=== PATIENT | female | born 1960 | race Native Hawaiian/Other Pacific Islander ===

== ENCOUNTER 2019-04-08 11:25 | Inpatient (IN) | payer SELFPAY ==
--- NOTE | 2019-04-08 12:01 | Event Note ---
ED Screening Note ED Screening Note: sent by pcp for weight loss n/v/d confusion hx liver disease quit drinking 7 y ago cig smoker htn This initial assessment/diagnostic orders/clinical plan/treatment(s) is/are subject to change based on patients health status, clinical progression and re- assessment by fellow clinical providers in the ED. Further treatment and workup at subsequent clinical providers discretion. Patient/guardian urged not to elope from the ED as their condition may be serious if not clinically assessed and managed. Initial orders include: labs ua ct
[2019-04-08 12:31] LABS: Hemoglobin 10.1 gm/dl (10.1-14.3); Mean Corpuscular HGB Conc 33 % (30-34); Mean Corpuscular Volume 85 fl (79-97); Red Blood Count 3.65 M/mm3 (3.65-5.03); Red Cell Distribution Width 19.4 % (13.2-15.2)
[2019-04-08 12:32] LABS: Platelet Count 56 K/mm3 (140-440)
[2019-04-08 12:55] LABS: Alanine Aminotransferase 66 units/L (7-56); Albumin 2.6 g/dL (3.9-5); BUN/Creatinine Ratio 18; Blood Urea Nitrogen 16 mg/dL (7-17); Calcium 8.7 mg/dL (8.4-10.2); Hemolysis Index 0
[2019-04-08 13:12] LABS: Basophils % (Manual) 0 % (0.0-1.8); Total Cells Counted 100
[2019-04-08 13:13] LABS: Anisocytosis Few; Large Platelets Rare; Ovalocytes Rare; Platelet Estimate Consistent w Auto; Poikilocytosis Few
[2019-04-08 15:10] LABS: INR 1.26 (0.87-1.13)
[2019-04-08 15:11] LABS: Partial Thromboplastin Time 29.4 Sec. (24.2-36.6)
--- NOTE | 2019-04-08 15:39 | Cat Scan Report ---
CT HEAD WITHOUT CONTRAST INDICATION : confusion. Dizziness for one day TECHNIQUE: Axial imaging performed from the skull apex through the skull base without the use of con trast. All CT scans at this location are performed using CT dose reduction for ALARA by means of aut omated exposure control. COMPARISON: None FINDINGS: Parenchyma: No acute intracranial hemorrhage or parenchymal abnormality. Ventricles: Ventricles are normal in size and appear symmetric. Bones: No acute osseous abnormality. Sinuses: Sinuses and mastoid air cells are clear. Soft tissues: Soft tissues including the orbits appear normal. IMPRESSION: No acute abnormality. Signer Name: Ector Narvaez Jr, MD Signed: 04/08/2019 3:35 PM Workstation Name: [id number]
[2019-04-08] MEDS ORDERED: ZOFRAN IV ONE (16:28)
--- NOTE | 2019-04-08 16:31 | Emergency Department Report ---
ED Abdominal Pain HPI - General Chief Complaint: Nausea/Vomiting/Diarrhea Stated Complaint: WEAKNESS/V/D/N Time Seen by Provider: 04/08/19 11:56 Source: patient Mode of arrival: Ambulatory Limitations: No Limitations - History of Present Illness Initial Comments: Patient is 58 years old female with no significant past medical history except for possible alcoholic liver cirrhosis. Patient presented to the ER primary care office for evaluation of generalized weakness, nausea and abdominal pain. Patient denied any fever or chills. Patient denied drinking any alcohol recently. Patient also denied any confusion. Patient denied any chest pain, shortness of breath or cough. MD Complaint: abdominal pain -: days(s) Location: diffuse Radiation: none Migration to: no migration Severity scale (0 -10): 0 Associated Symptoms: nausea - Related Data Allergies Allergy/AdvReac Type Severity Reaction Status Date / Time No Known Allergies Allergy Verified 04/08/19 12:00 ED Review of Systems ROS: Stated complaint: WEAKNESS/V/D/N Other details as noted in HPI Comment: All other systems reviewed and negative Constitutional: denies: chills, fever Respiratory: denies: cough, orthopnea, shortness of breath, SOB with exertion, wheezing Cardiovascular: denies: chest pain, palpitations Gastrointestinal: abdominal pain, nausea. denies: vomiting, diarrhea, constipation, hematemesis, melena Musculoskeletal: denies: back pain Neurological: weakness. denies: headache, numbness, paresthesias, confusion, abnormal gait ED Past Medical Hx - Past Medical History Previous Medical History?: Yes Hx Hypertension: Yes Additional medical history: Alcoholic cirrhosis of liver - Surgical History Past Surgical History?: Yes Additional Surgical History: hysterectomy - Social History Smoking Status: Current Every Day Smoker Substance Use Type: None ED Physical Exam - General Limitations: No Limitations General appearance: alert, in no apparent distress - Head Head exam: Present: atraumatic, normocephalic, normal inspection - Eye Eye exam: Present: PERRL, EOMI, scleral icterus - ENT ENT exam: Present: normal exam, normal orophraynx, mucous membranes moist - Neck Neck exam: Present: normal inspection, full ROM. Absent: tenderness, meningismus, lymphadenopathy, thyromegaly - Respiratory Respiratory exam: Present: normal lung sounds bilaterally - Cardiovascular Cardiovascular Exam: Present: regular rate, normal rhythm, normal heart sounds - GI/Abdominal GI/Abdominal exam: Present: soft, normal bowel sounds. Absent: distended, tenderness, guarding, rebound, rigid, organomegaly, mass, bruit, pulsatile mass, hernia - Extremities Exam Extremities exam: Present: normal inspection, full ROM, normal capillary refill. Absent: tenderness, pedal edema, calf tenderness - Back Exam Back exam: Present: normal inspection, full ROM. Absent: tenderness, CVA tenderness (R), CVA tenderness (L), muscle spasm, paraspinal tenderness, verte bral tenderness - Neurological Exam Neurological exam: Present: alert, oriented X3, CN II-XII intact, normal gait, reflexes normal - Psychiatric Psychiatric exam: Present: normal mood - Skin Skin exam: Present: warm, intact, normal color ED Course Vital Signs 04/08/19 04/08/19 04/08/19 11:57 16:30 16:41 Temperature 97.4 F L Pulse Rate 72 77 Respiratory 14 10 L 16 Rate Blood Pressure 101/50 Blood Pressure 130/58 [Right] O2 Sat by Pulse 100 99 Oximetry 04/08/19 04/08/19 18:59 19:43 Temperature 98.6 F Pulse Rate 81 85 Respiratory 16 13 Rate Blood Pressure 121/59 Blood Pressure 124/62 [Right] O2 Sat by Pulse 98 100 Oximetry ED Medical Decision Making - Lab Data Result diagrams: 04/08/19 12:03 04/08/19 12:03 - Radiology Data Radiology results: report reviewed - Medical Decision Making Patient is 58 years old female with no significant past medical history except for possible alcoholic liver cirrhosis. Patient presented to the ER primary care office for evaluation of generalized weakness, nausea and abdominal pain. Patient denied any fever or chills. Patient denied drinking any alcohol recently. Patient also denied any confusion. Patient denied any chest pain, shortness of breath or cough. Patient labs reviewed and showed abnormal liver function tests with increased liver enzymes and bilirubin. I discussed the patient is , from gastroenterology. She advised to start patient on lactulose and she will be consulted on the patient. Critical care attestation.: If time is entered above; I have spent that time in minutes in the direct care of this critically ill patient, excluding procedure time. ED Disposition Clinical Impression: Hepatic encephalopathy, Liver failure Disposition: OP ADMIT IP TO THIS HOSP Is pt being admited?: Yes Condition: Stable Referrals: MG BARRAGAN MD [Primary Care Provider] - 3-5 Days
--- NOTE | 2019-04-08 19:55 | Cat Scan Report ---
CT ABDOMEN AND PELVIS WITH CONTRAST INDICATION: abdominal pain, elevated liver enzymes. TECHNIQUE: Axial CT images were obtained through the abdomen and pelvis after 100 cc Omnipaque [address] scans at this location are performed using CT dose reduction for ALARA by means of automated exposure control. COMPARISON: CT abdomen pelvis 01/12/2013 FINDINGS: LOWER CHEST: No significant abnormality. LIVER: Extensive cirrhosis with marked fibrosis and nodular surface contour has progressed since prio r study. No focal intrahepatic lesion to suggest hepatocellular carcinoma. Thrombosis of the main, ri ght and left portal veins with cavernous transformation GALLBLADDER: No significant abnormality. BILE DUCTS: No significant abnormality. PANCREAS: No significant abnormality. SPLEEN: Enlarged measuring 18 cm ADRENALS: No significant abnormality. RIGHT KIDNEY and URETER: No significant abnormality. LEFT KIDNEY and URETER: No significant abnormality. STOMACH and SMALL BOWEL: No significant abnormality. COLON: No significant abnormality. APPENDIX: No significant abnormality. PERITONEUM: No free fluid. No free air. No fluid collection. LYMPH NODES: No significant adenopathy. AORTA and ARTERIES: No significant abnormality. IVC and VEINS: Markedly enlarged splenic varices measuring 2 cm with left splenorenal shunt and moder ate gastric and esophageal varices. Enlarged internal iliac veins with internal hemorrhoids. URINARY BLADDER: No significant abnormality. REPRODUCTIVE ORGANS: No significant abnormality. ADDITIONAL FINDINGS: None. SKELETAL SYSTEM: No significant abnormality. IMPRESSION: 1. 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 Marked splenomegaly, left splenorenal shunt, markedly enlarged splenic varices, moderate gastric a nd esophageal varices and internal hemorrhoids. No ascites. Signer Name: Malachi Moore MD Signed: 04/08/2019 7:50 PM Workstation Name: [id number]
[2019-04-08] MEDS ORDERED: CEPHULAC PO ONE (20:19)
[2019-04-08 20:49] LABS: Bacteria,Urine 1+ /HPF (Negative); Bilirubin,Urine NEG (Negative); Blood,Urine SM (Negative); Color,Urine Amber (Yellow); Protein,Urine <15 mg/dL mg/dL (Negative)
[2019-04-08 20:51] LABS: WBC,Urine > 182.0 /HPF (0.0-6.0)
--- NOTE | 2019-04-08 22:39 | History and Physical Report ---
History of Present Illness Date of examination: 04/08/19 History of present illness: 58-year-old woman with a history of hypertension, cirrhosis was sent to the emergency room by primary care for evaluation of confusion. Patient states she has been dizzy, and nauseous, currently she is not confused. She did one episod e of vomiting yesterday. Denies abdominal pain Review of systems Constitutional: no weight loss, chills, fever Ears, eyes, nose, mouth and throat: no nasal congestion, no nasal discharge, no sinus pressure, no vision change, no red eye. Neck: No neck pain or rigidity. Cardiovascular: no palpitations, chest pain Respiratory: no cough, shortness of breath Gastrointestinal: no hematochezia, abdominal pain Genitourinary : no frequency , no hematuria Musculoskeletal: no joint swelling or muscle ache Integumentary: no rash, no pruritis Neurological: no parathesias, no focal weakness Endocrine: no cold or heat intolerance, no polyuria or polydipsia Hematologic/Lymphatic: no easy bruising, no easy bleeding, no gland swelling Allergic/Immunologic: no urticaria, no angioedema. PAST MEDICAL HISTORY:hypertension, cirrhosis PAST SURGICAL HISTORY: Hysterectomy SOCIAL HISTORY: Denies alcohol, drugs, +tobacco FAMILY HISTORY: Hypertension Medications and Allergies Allergies Allergy/AdvReac Type Severity Reaction Status Date / Time No Known Allergies Allergy Verified 04/08/19 12:00 Home Medications Medication Instructions Recorded Confirmed Last Taken Type No Known Home Medications [No 04/09/19 04/09/19 Unknown History Reported Home Medications] Exam - Physical Exam Narrative exam: General Apperance: The patient lying in bed, breathing comfortable HEENT: Normocephalic, atraumatic. Pupils equally round and reactive to light, EOMI, no sclericterus or JVD or thyromegaly or nodule. , no carotid bruit, mucous membranes moist, no exudate or erythema Heart: S1-S2, regular is rhythm Lungs: Clear to auscultation bilaterally, breathing comfortable Abdomen: Positive bowel sounds, soft, nontender, nondistended, no organomegaly Extremities: No edema cyanosis clubbing Skin: no rash, nodule, warm and dry Neuro: cranial nerves 2-12 intact, speech is fluent, motor/sensory intact - Constitutional Vitals: Temp Pulse Resp BP Pulse Ox 98.6 F 85 13 121/59 100 04/08/19 18:59 07/17/19 19:43 04/08/19 19:43 04/08/19 19:43 04/08/19 19:43 Results - Labs CBC & Chem 7: 04/08/19 12:03 04/08/19 12:03 Labs: Abnormal lab results 04/08/19 04/08/19 04/08/19 Range/Units 12:03 12:03 14:37 WBC 2.2 L (4.5-11.0) K/mm3 RDW 19.4 H (13.2-15.2) % Plt Count 56 L (140-440) K/mm3 Seg Neuts % (Manual) 77.0 H (40.0-70.0) % Seg Neutrophils # Man 1.7 L (1.8-7.7) K/mm3 Lymphocytes # (Manual) 0.4 L (1.2-5.4) K/mm3 PT 15.5 H (12.2-14.9) Sec. INR 1.26 H (0.87-1.13) Chloride 108.5 H (98-107) mmol/L Glucose 110 H (65-100) mg/dL Total Bilirubin 6.30 H (0.1-1.2) mg/dL Direct Bilirubin 4.0 H (0-0.2) mg/dL AST 129 H (5-40) units/L ALT 66 H (7-56) units/L Alkaline Phosphatase 619 H (35-129) units/L Ammonia (25-60) umol/L Albumin 2.6 L (3.9-5) g/dL Urine WBC (Auto) (0.0-6.0) /HPF 04/08/19 04/08/19 Range/Units 17:16 19:45 WBC (4.5-11.0) K/mm3 RDW (13.2-15.2) % Plt Count (140-440) K/mm3 Seg Neuts % (Manual) (40.0-70.0) % Seg Neutrophils # Man (1.8-7.7) K/mm3 Lymphocytes # (Manual) (1.2-5.4) K/mm3 PT (12.2-14.9) Sec. 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
[2019-04-08] MEDS ORDERED: ZOFRAN IV PRN (23:27)
[2019-04-08] MEDS ORDERED: TYLENOL PO PRN (23:27)
[2019-04-08] MEDS ORDERED: SODIUM CHLORIDE FLUSH SYRINGE 10 ML IV PRN (23:27)
[2019-04-08] MEDS: ROCEPHIN/NS 1 GM/50 ML 1 GM/50 ML BAG IV SCH (23:50)
[2019-04-08] MEDS ORDERED: ROCEPHIN/NS 1 GM/50 ML 1 GM/50 ML BAG IV ONE (23:56)
[2019-04-09] MEDS: CEPHULAC PO SCH ×4 (01:45→19:36)
[2019-04-09 06:17] LABS: Hematocrit 26.8 % (30.3-42.9); Mean Corpuscular HGB Conc 34 % (30-34); Mean Corpuscular Volume 84 fl (79-97); Red Blood Count 3.19 M/mm3 (3.65-5.03)
[2019-04-09 06:29] LABS: INR 1.31 (0.87-1.13); Red Cell Distribution Width 20.2 % (13.2-15.2)
[2019-04-09 06:30] LABS: Partial Thromboplastin Time 31.2 Sec. (24.2-36.6)
[2019-04-09 06:42] LABS: Alanine Aminotransferase 55 units/L (7-56); BUN/Creatinine Ratio 18; Blood Urea Nitrogen 16 mg/dL (7-17); Calcium 7.9 mg/dL (8.4-10.2); Hemolysis Index 0
--- NOTE | 2019-04-09 08:21 | Progress Note ---
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 Follow-up on current diagnosis of AMS. No overnight events reported to me. Patient denies any chest pain, shortness breath, severe headaches. Imaging, nursing note, chart, labs and old chart reviewed. Discussed with patient. Hospitalist Physical - Physical exam Narrative exam: Gen: WDWN, NAD, Awake, Alert, Orientated HEENT: NCAT, EOMI, PERRL, OP Clear Neck: supple, no adenopathy, no thyromegaly, no JVD CVS/Heart: RRR, normal S1S2, pulses present bilaterally Chest/Lungs: CTA B, Symmetrical chest expansion, good air entry bilaterally GI/Abdomen: soft, NTND, good bowel sounds, no guarding or rebound /Bladder: no suprapubic tenderness, no CVA or paraspinal tenderness Extermity/Skin: no c/c/e, no obvious rash MSK: FROM x 4 Neuro: CN 2-12 grossly intact, no new focal deficits Psych: calm - Constitutional Vitals: Temp Pulse Resp BP Pulse Ox 98.5 F 78 20 95/38 97 04/09/19 04:41 04/09/19 04:41 04/09/19 04:41 04/09/19 04:41 04/09/19 04:41 Results - Labs CBC & Chem 7: 04/09/19 04:59 04/09/19 04:59 Labs: Laboratory Last Values WBC 2.2 K/mm3 (4.5-11.0) L 04/09/19 04:59 RBC 3.19 M/mm3 (3.65-5.03) L 04/09/19 04:59 Hgb 9.0 gm/dl (10.1-14.3) L 04/09/19 04:59 Hct 26.8 % (30.3-42.9) L 04/09/19 04:59 MCV 84 fl (79-97) 04/09/19 04:59 MCH 28 pg (28-32) 04/09/19 04:59 MCHC 34 % (30-34) 04/09/19 04:59 RDW 20.2 % (13.2-15.2) H 04/09/19 04:59 Plt Count 56 K/mm3 (140-440) L 04/08/19 12:03 Lymph % (Auto) Construction Project Administrator 04/08/19 12:03 [place] % (Auto) Construction Project Administrator 04/08/19 12:03 Eos % (Auto) Construction Project Administrator 04/08/19 12:03 Baso % (Auto) Construction Project Administrator 04/08/19 12:03 Lymph # Construction Project Administrator 04/08/19 12:03 [place] # Construction Project Administrator 04/08/19 12:03 Eos # Construction Project Administrator 04/08/19 12:03 Baso # Construction Project Administrator 04/08/19 12:03 Add Manual Diff Complete 04/08/19 12:03 Total Counted 100 04/08/19 12:03 Seg Neutrophils % Construction Project Administrator 04/08/19 12:03 Seg Neuts % (Manual) 77.0 % (40.0-70.0) H 04/08/19 12:03 0 % 04/08/19 12:03 16.0 % (13.4-35.0) 04/08/19 12:03 Reactive Lymphs % (Man) 0 % 04/08/19 12:03 3.0 % (0.0-7.3) 04/08/19 12:03 4.0 % (0.0-4.3) 04/08/19 12:03 0 % (0.0-1.8) 04/08/19 12:03 0 % 04/08/19 12:03 0 % 04/08/19 12:03 0 % 04/08/19 12:03 0 % 04/08/19 12:03 Nucleated RBC % Not Reportable 04/08/19 12:03 Seg Neutrophils # Construction Project Administrator 04/08/19 12:03 Seg Neutrophils # Man 1.7 K/mm3 (1.8-7.7) L 04/08/19 12:03 Band Neutrophils # 0.0 K/mm3 04/08/19 12:03 0.4 K/mm3 (1.2-5.4) L 04/08/19 12:03 Abs React Lymphs (Man) 0.0 K/mm3 04/08/19 12:03 0.1 K/mm3 (0.0-0.8) 04/08/19 12:03 0.1 K/mm3 (0.0-0.4) 04/08/19 12:03 0.0 K/mm3 (0.0-0.1) 04/08/19 12:03 0.0 K/mm3 04/08/19 12:03 0.0 K/mm3 04/08/19 12:03 0.0 K/mm3 04/08/19 12:03 Blast Cells # 0.0 K/mm3 04/08/19 12:03 WBC Morphology Not Reportable 04/08/19 12:03 Hypersegmented Neuts Not Reportable 04/08/19 12:03 Hyposegmented Neuts Not Reportable 04/08/19 12:03 Hypogranular Neuts Not Reportable 04/08/19 12:03 Not Reportable 04/08/19 12:03 Not Reportable 04/08/19 12:03 Not Reportable 04/08/19 12:03 Not Reportable 04/08/19 12:03 Not Reportable 04/08/19 12:03 Not Reportable 04/08/19 12:03 Consistent w auto 04/08/19 12:03 Not Reportable 04/08/19 12:03 Plt Clumps, EDTA Not Reportable 04/08/19 12:03 Rare 04/08/19 12:03 Not Reportable 04/08/19 12:03 Not Reportable 04/08/19 12:03 Plt Morphology Comment Not Reportable 04/08/19 12:03 RBC Morphology Not Reportable 04/08/19 12:03 Dimorphic RBCs Not Reportable 04/08/19 12:03 Not Reportable 04/08/19 12:03 Not Reportable 04/08/19 12:03 Few 04/08/19 12:03 Few 04/08/19 12:03 Not Reportable 04/08/19 12:03 Not Reportable 04/08/19 12:03 Not Reportable 04/08/19 12:03 Not Reportable 04/08/19 12:03 Not Reportable 04/08/19 12:03 Not Reportable 04/08/19 12:03 Not Reportable 04/08/19 12:03 Rare 04/08/19 12:03 Not Reportable 04/08/19 12:03 Not Reportable 04/08/19 12:03 Not Reportable 04/08/19 12:03 Not Reportable 04/08/19 12:03 Not Reportable 04/08/19 12:03 Not Reportable 04/08/19 12:03 Not Reportable 04/08/19 12:03 Acanthocytes (Spur) Not Reportable 04/08/19 12:03 Rouleaux Not Reportable 04/08/19 12:03 Not Reportable 04/08/19 12:03 Not Reportable 04/08/19 12:03 Not Reportable 04/08/19 12:03 Not Reportable 04/08/19 12:03 Hem Pathologist Commnt No 04/08/19 12:03 PT 16.0 Sec. (12.2-14.9) H 04/09/19 04:59 INR 1.31 (0.87-1.13) H 04/09/19 04:59 APTT 31.2 Sec. (24.2-36.6) 04/09/19 04:59 Sodium 143 mmol/L (137-145) 04/09/19 04:59 Potassium 3.6 mmol/L (3.6-5.0) D 04/09/19 04:59 Chloride 109.5 mmol/L (98-107) H 04/09/19 04:59 Carbon Dioxide 25 mmol/L (22-30) 04/09/19 04:59 12 mmol/L 04/09/19 04:59 BUN 16 mg/dL (7-17) 04/09/19 04:59 0.9 mg/dL (0.7-1.2) 04/09/19 04:59 Estimated GFR > 60 ml/min 04/09/19 04:59 18 % 04/09/19 04:59 Glucose 72 mg/dL (65-100) 04/09/19 04:59 Calcium 7.9 mg/dL (8.4-10.2) L 04/09/19 04:59 4.90 mg/dL (0.1-1.2) H 04/09/19 04:59 4.0 mg/dL (0-0.2) H 04/08/19 12:03 AST 103 units/L (5-40) H 04/09/19 04:59 ALT 55 units/L (7-56) 04/09/19 04:59 533 units/L (35-129) H 04/09/19 04:59 148.0 umol/L (25-60) H 04/08/19 17:16 NT-Pro-B Natriuret Pep 178.8 pg/mL (0-900) 04/08/19 12:03 6.4 g/dL (6.3-8.2) 04/09/19 04:59 2.0 g/dL (3.9-5) L 04/09/19 04:59 0.5 % 04/09/19 04:59 Amylase 47 units/L (27-131) 04/08/19 12:03 49 units/L (13-60) 04/08/19 12:03 Jocelyn (Yellow) 04/08/19 19:45 Cloudy (Clear) 04/08/19 19:45 6.0 (5.0-7.0) 04/08/19 19:45 Ur Specific [place] 1.017 (1.003-1.030) 04/08/19 19:45 <15 mg/dl mg/dL (Negative) 04/08/19 19:45 Neg mg/dL (Negative) 04/08/19 19:45 Neg mg/dL (Negative) 04/08/19 19:45 Sm (Negative) 04/08/19 19:45 Pos (Negative) 04/08/19 19:45 Neg (Negative) 04/08/19 19:45 4.0 mg/dL (<2.0) 04/08/19 19:45 Ur Leukocyte Esterase Lg (Negative) 04/08/19 19:45 > 182.0 /HPF (0.0-6.0) H 04/08/19 19:45 3.0 /HPF (0.0-6.0) 04/08/19 19:45 1+ /HPF (Negative) 04/08/19 19:45 3+ /HPF 04/08/19 19:45 Active Medications - Current Medications Current Medications: Generic Name Dose Route Start Last Admin Trade Name Freq PRN Reason Stop Dose Admin Ceftriaxone Sodium 1 gm in 50 mls @ 100 mls/hr 04/08/19 22:38 04/08/19 23:50 Rocephin/Ns 1 Gm/50 Ml IV 100 mls/hr Q24HR [place] Administration Protocol Lactulose 20 gm 04/09/19 02:00 04/09/19 06:02 Cephulac PO 20 gm Q6HR [place] Administration Ondansetron HCl 4 mg 04/08/19 23:27 Zofran IV Q8H PRN Nausea And Vomiting Sodium Chloride 10 ml 04/09/19 10:00 Sodium Chloride Flush Syringe 10 Ml IV BID [place] Sodium Chloride 10 ml 04/08/19 23:27 Sodium Chloride Flush Syringe 10 Ml IV PRN PRN LINE FLUSH
[2019-04-09] MEDS: ROCEPHIN/NS 1 GM/50 ML 1 GM/50 ML BAG IV SCH (11:33)
[2019-04-09] MEDS: SODIUM CHLORIDE FLUSH SYRINGE 10 ML IV SCH ×2 (11:34→22:03)
--- NOTE | 2019-04-09 12:34 | Gastroenterology Consultation ---
History of Present Illness - Reason for Consult Consult date: 04/09/19 hepatic encephalopathy Requesting physician: VERENA CANCINO - History of Present Illness Patient is a 58 y/o female with with PMH of HTN, anemia, colitis (seen on CT in 2014 w/ f/u colonoscopy by Dr. Henning showing polyp, internal hemorrhoids, and erythematous mucosa in entire colon but bx results benign) who presented to ED with AMS with associated dizziness and 1 episode of vomiting. Upon admission, she was found to have hepatic encephalopathy with elevated ammonia level to which GI has been consulted. This morning patient was resting in bed w/o acute distress. Noted to be alert and oriented x 3 with encephalopathy improved. She is currently w/o GI complaints such as wt loss, abd pain, N/V, signs of bleeding, diarrhea, or constipation. Tolerating diet. 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 Oreilly 2002; hepatitis serologies negative 2014) with recommendations given for patient to possibly be referred for liver transplant pending MELD score however patient was lost to follow up. Patient states she is currently being followed/treated by a physician in [facility] and is taking a daily medication for her liver disease but is unable to give name. No alcohol use or prior hx of GI/variceal bleeding per pt report. Past History Past Medical History: other (as per HPI) Past Surgical History: hysterectomy Social history: denies: alcohol abuse Family history: hypertension Medications and Allergies Allergies Allergy/AdvReac Type Severity Reaction Status Date / Time No Known Allergies Allergy Verified 04/08/19 12:00 Home Medications Medication Instructions Recorded Confirmed Last Taken Type No Known Home Medications [No 04/09/19 04/09/19 Unknown History Reported Home Medications] Active Meds: Active Medications Ceftriaxone Sodium (Rocephin/Ns 1 Gm/50 Ml) 1 gm in 50 mls @ 100 mls/hr IV Q24HR ISRAEL; Protocol Last Admin: 04/09/19 11:33 Dose: 100 mls/hr Documented by: Lactulose (Cephulac) 20 gm PO Q6HR ISRAEL Last Admin: 04/09/19 11:30 Dose: 20 gm Documented by: Ondansetron HCl (Zofran) 4 mg IV Q8H PRN PRN Reason: Nausea And Vomiting Sodium Chloride (Sodium Chloride Flush Syringe 10 Ml) 10 ml IV BID ISRAEL Last Admin: 04/09/19 11:34 Dose: 10 ml Documented by: Sodium Chloride (Sodium Chloride Flush Syringe 10 Ml) 10 ml IV PRN PRN PRN Reason: LINE FLUSH medications reviewed/updated as required Review of Systems - Review of Systems All systems: negative Gastrointestinal: no abdominal pain, no nausea, no vomiting, no hematemesis, no melena, no hematochezia Exam - Constitutional Vital Signs: Temp Pulse Resp BP Pulse Ox 98.5 F 78 20 95/38 97 04/09/19 04:41 04/09/19 04:41 04/09/19 04:41 04/09/19 04:41 04/09/19 04:41 General appearance: no acute distress - EENT Eyes: scleral icterus - Respiratory Respiratory effort: normal - Cardiovascular Rhythm: regular - Gastrointestinal General gastrointestinal: Present: soft, non-tender, non-distended, normal bowel sounds - Neurologic Neurological: alert and oriented x3 - Labs CBC & Chem 7: 04/09/19 04:59 04/09/19 04:59 Lab Results: Laboratory Results - last 24 hr 04/08/19 04/08/19 04/08/19 12:03 12:03 12:03 WBC 2.2 L RBC 3.65 Hgb 10.1 Hct 31.0 MCV 85 MCH 28 MCHC 33 RDW 19.4 H Plt Count 56 L Lymph % (Auto) Photographer News [place] % (Auto) Photographer News Eos % (Auto) Photographer News Baso % (Auto) Photographer News Lymph # Photographer News [place] # Photographer News Eos # Photographer News Baso # Photographer News Add Manual Diff Complete Total Counted 100 Seg Neutrophils % Photographer News Seg Neuts % (Manual) 77.0 H Band Neutrophils % 0 Lymphocytes % (Manual) 16.0 Reactive Lymphs % (Man) 0 Monocytes % (Manual) 3.0 Eosinophils % (Manual) 4.0 Basophils % (Manual) 0 Metamyelocytes % 0 Myelocytes % 0 Promyelocytes % 0 Blast Cells % 0 Nucleated RBC % Not Reportable Seg Neutrophils # Photographer News Seg Neutrophils # Man 1.7 L Band Neutrophils # 0.0 Lymphocytes # (Manual) 0.4 L Abs React Lymphs (Man) 0.0 Monocytes # (Manual) 0.1 Eosinophils # (Manual) 0.1 Basophils # (Manual) 0.0 Metamyelocytes # 0.0 Myelocytes # 0.0 Promyelocytes # 0.0 Blast Cells # 0.0 WBC Morphology Not Reportable Hypersegmented Neuts Not Reportable Hyposegmented Neuts Not Reportable Hypogranular Neuts Not Reportable Smudge Cells Not Reportable Toxic Granulation Not Reportable Toxic Vacuolation Not Reportable Dohle Bodies Not Reportable Pelger-Huet Anomaly Not Reportable Derick Rods Not Reportable Platelet Estimate Consistent w auto Clumped Platelets Not Reportable Plt Clumps, EDTA Not Reportable Large Platelets Rare Giant Platelets Not Reportable Platelet Satelliting Not Reportable Plt Morphology Comment Not Reportable RBC Morphology Not Reportable Dimorphic RBCs Not Reportable Polychromasia Not Reportable Hypochromasia Not Reportable Poikilocytosis Few Anisocytosis Few Microcytosis Not Reportable Macrocytosis Not Reportable Spherocytes Not Reportable Pappenheimer Bodies Not Reportable Sickle Cells Not Reportable Target Cells Not Reportable Tear Drop Cells Not Reportable Ovalocytes Rare Helmet Cells Not Reportable Gilliam-Estelline Bodies Not Reportable [place] Rings Not Reportable Xavier Cells Not Reportable Bite Cells Not Reportable Crenated Cell Not Reportable Elliptocytes Not Reportable Acanthocytes (Spur) Not Reportable Rouleaux Not Reportable Hemoglobin C Crystals Not Reportable Schistocytes Not Reportable Malaria parasites Not Reportable Dennis Bodies Not Reportable Hem Pathologist Commnt No PT INR APTT Sodium 143 Potassium 5.0 Chloride 108.5 H Carbon Dioxide 26 Anion Gap 14 BUN 16 Creatinine 0.9 Estimated GFR > 60 BUN/Creatinine Ratio 18 Glucose 110 H Calcium 8.7 Total Bilirubin 6.30 H Direct Bilirubin 4.0 H AST 129 H ALT 66 H Alkaline Phosphatase 619 H Ammonia NT-Pro-B Natriuret Pep 178.8 Total Protein 7.4 Albumin 2.6 L Albumin/Globulin Ratio 0.5 Amylase 47 Lipase 49 Urine Color Urine Turbidity Urine pH Ur Specific Anthony Urine Protein Urine Glucose (UA) Urine Ketones Urine Blood Urine Nitrite Urine Bilirubin Urine Urobilinogen Ur Leukocyte Esterase Urine WBC (Auto) Urine RBC (Auto) Urine Bacteria (Auto) Urine WBC Clumps 04/08/19 04/08/19 04/08/19 14:37 17:16 19:45 WBC RBC Hgb Hct MCV MCH MCHC RDW Plt Count Lymph % (Auto) [place] % (Auto) Eos % (Auto) Baso % (Auto) Lymph # [place] # Eos # Baso # Add Manual Diff Total Counted Seg Neutrophils % Seg Neuts % (Manual) Band Neutrophils % Lymphocytes % (Manual) Reactive Lymphs % (Man) Monocytes % (Manual) Eosinophils % (Manual) Basophils % (Manual) Metamyelocytes % Myelocytes % Promyelocytes % Blast Cells % Nucleated RBC % Seg Neutrophils # Seg Neutrophils # Man Band Neutrophils # Lymphocytes # (Manual) Abs React Lymphs (Man) Monocytes # (Manual) Eosinophils # (Manual) Basophils # (Manual) Metamyelocytes # Myelocytes # Promyelocytes # Blast Cells # WBC Morphology Hypersegmented Neuts Hyposegmented Neuts Hypogranular Neuts Smudge Cells Toxic Granulation Toxic Vacuolation Dohle Bodies Pelger-Huet Anomaly Derick Rods Platelet Estimate Clumped Platelets Plt Clumps, EDTA Large Platelets Giant Platelets Platelet Satelliting Plt Morphology Comment RBC Morphology Dimorphic RBCs Polychromasia Hypochromasia Poikilocytosis Anisocytosis Microcytosis Macrocytosis Spherocytes Pappenheimer Bodies Sickle Cells Target Cells Tear Drop Cells Ovalocytes Helmet Cells Gilliam-Estelline Bodies [place] Rings Xavier Cells Bite Cells Crenated Cell Elliptocytes Acanthocytes (Spur) Rouleaux Hemoglobin C Crystals Schistocytes Malaria parasites Dennis Bodies Hem Pathologist Commnt PT 15.5 H INR 1.26 H APTT 29.4 Sodium Potassium Chloride Carbon Dioxide Anion Gap BUN Creatinine Estimated GFR BUN/Creatinine Ratio Glucose Calcium Total Bilirubin Direct Bilirubin AST ALT Alkaline Phosphatase Ammonia 148.0 H NT-Pro-B Natriuret Pep Total Protein Albumin Albumin/Globulin Ratio Amylase Lipase Urine Color Jocelyn Urine Turbidity Cloudy Urine pH 6.0 Ur Specific Anthony 1.017 Urine Protein <15 mg/dl Urine Glucose (UA) Neg Urine Ketones Neg Urine Blood Sm Urine Nitrite Pos Urine Bilirubin Neg Urine Urobilinogen 4.0 Ur Leukocyte Esterase Lg Urine WBC (Auto) > 182.0 H Urine RBC (Auto) 3.0 Urine Bacteria (Auto) 1+ Urine WBC Clumps 3+ 04/09/19 04/09/19 04/09/19 04:59 04:59 04:59 WBC 2.2 L RBC 3.19 L Hgb 9.0 L Hct 26.8 L MCV 84 MCH 28 MCHC 34 RDW 20.2 H Plt Count Lymph % (Auto) [place] % (Auto) Eos % (Auto) Baso % (Auto) Lymph # [place] # Eos # Baso # Add Manual Diff Total Counted Seg Neutrophils % Seg Neuts % (Manual) Band Neutrophils % Lymphocytes % (Manual) Reactive Lymphs % (Man) Monocytes % (Manual) Eosinophils % (Manual) Basophils % (Manual) Metamyelocytes % Myelocytes % Promyelocytes % Blast Cells % Nucleated RBC % Seg Neutrophils # Seg Neutrophils # Man Band Neutrophils # Lymphocytes # (Manual) Abs React Lymphs (Man) Monocytes # (Manual) Eosinophils # (Manual) Basophils # (Manual) Metamyelocytes # Myelocytes # Promyelocytes # Blast Cells # WBC Morphology Hypersegmented Neuts Hyposegmented Neuts Hypogranular Neuts Smudge Cells Toxic Granulation Toxic Vacuolation Dohle Bodies Pelger-Huet Anomaly Derick Rods Platelet Estimate Clumped Platelets Plt Clumps, EDTA Large Platelets Giant Platelets Platelet Satelliting Plt Morphology Comment RBC Morphology Dimorphic RBCs Polychromasia Hypochromasia Poikilocytosis Anisocytosis Microcytosis Macrocytosis Spherocytes Pappenheimer Bodies Sickle Cells Target Cells Tear Drop Cells Ovalocytes Helmet Cells Gilliam-Estelline Bodies [place] Rings Xavier Cells Bite Cells Crenated Cell Elliptocytes Acanthocytes (Spur) Rouleaux Hemoglobin C Crystals Schistocytes Malaria parasites Dennis Bodies Hem Pathologist Commnt PT 16.0 H INR 1.31 H APTT 31.2 Sodium 143 Potassium 3.6 D Chloride 109.5 H Carbon Dioxide 25 Anion Gap 12 BUN 16 Creatinine 0.9 Estimated GFR > 60 BUN/Creatinine Ratio 18 Glucose 72 Calcium 7.9 L Total Bilirubin 4.90 H Direct Bilirubin AST 103 H ALT 55 Alkaline Phosphatase 533 H Ammonia NT-Pro-B Natriuret Pep Total Protein 6.4 Albumin 2.0 L Albumin/Globulin Ratio 0.5 Amylase Lipase Urine Color Urine Turbidity Urine pH Ur Specific Anthony Urine Protein Urine Glucose (UA) Urine Ketones Urine Blood Urine Nitrite Urine Bilirubin Urine Urobilinogen Ur Leukocyte Esterase Urine WBC (Auto) Urine RBC (Auto) Urine Bacteria (Auto) Urine WBC Clumps Assessment and Plan 1.hepatic encephalopathy 2.cirrhosis/varices -afebrile -WBC 2.2 -H/H 9.0/26.8 -plt 56, INR 1.31 -LFTs-T.yosi 4.90, AST 103, ALT 55, alk phos 533-trending down -ammonia 148 on admission -abd CT showed worsening cirrhosis with 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 Denies abd pain , N/V, or active signs of bleeding. Tolerating diet. -continue lactulose (titrate to goal of BM x 2-3/day) -start on xifaxan -diet as tolerated -recommend patient bring home medications for evaluation (ursodial?) -continue to trend labs (repeat INR, CMP, ammonia in am) and supportive care -patient will need further workup/management as outpatient upon discharge -will follow 3.UTI
[2019-04-09 14:19] LABS: Anisocytosis 1+; Basophils % (Manual) 0 % (0.0-1.8); Platelet Estimate Consistent w Auto; Total Cells Counted 100
[2019-04-09 14:27] LABS: Platelet Count 49 K/mm3 (140-440)
[2019-04-10] MEDS: CEPHULAC PO SCH ×3 (00:45→11:00)
[2019-04-10 05:49] LABS: Hematocrit 27.1 % (30.3-42.9); Mean Corpuscular HGB Conc 33 % (30-34); Mean Corpuscular Volume 86 fl (79-97); Red Blood Count 3.17 M/mm3 (3.65-5.03)
[2019-04-10 05:53] LABS: Platelet Count 45 K/mm3 (140-440)
[2019-04-10 05:59] LABS: INR 1.35 (0.87-1.13)
[2019-04-10 06:12] LABS: Alanine Aminotransferase 61 units/L (7-56); Albumin 2.1 g/dL (3.9-5); BUN/Creatinine Ratio 19; Blood Urea Nitrogen 15 mg/dL (7-17); Calcium 7.7 mg/dL (8.4-10.2); Hemolysis Index 5
[2019-04-10 06:21] LABS: Hepatitis B Surface Antigen Non-Reactive (Negative); Hepatitis C Virus Antibody Non-Reactive (NonReactive)
--- NOTE | 2019-04-10 10:18 | Gastroenterology Progress Note ---
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 Denies abd pain, N/V, or active signs of bleeding. Tolerating diet. -continue lactulose (titrate to goal of BM x 2-3/day) -continue xifaxan -continue to trend labs and supportive care -patient is okay to be d/c per GI standpoint on current medications with f/u in clinic for further workup/management -will sign off, please call if needed Subjective Date of service: 04/10/19 Principal diagnosis: hepatic encephalopathy Interval history: Patient resting in bed this am w/o acute distress eating breakfast. A&O x 3. No abd pain, N/V, or signs of bleeding. Tolerating diet. Objective - Constitutional Vitals: Temp Pulse Resp BP Pulse Ox 98.3 F 79 18 121/62 100 04/10/19 06:04 04/10/19 06:04 04/10/19 06:04 04/10/19 06:03 04/10/19 06:04 General appearance: no acute distress - EENT Eyes: PERRL, EOM intact, scleral icterus ENT: hearing intact - Respiratory Respiratory effort: normal Respiratory: bilateral: CTA - Cardiovascular Rhythm: regular - Gastrointestinal General gastrointestinal: Present: soft, non-tender, non-distended, normal bowel sounds - Neurologic Neurological: alert and oriented x3 - Labs CBC & Chem 7: 04/10/19 05:21 04/10/19 05:21 Labs: Laboratory Results - last 24 hr 04/09/19 04/10/19 04/10/19 04:59 05:21 05:21 WBC 1.4 L* RBC 3.17 L Hgb 9.0 L Hct 27.1 L MCV 86 MCH 28 MCHC 33 RDW 20.0 H Plt Count 49 L 45 L Add Manual Diff Complete Total Counted 100 Seg Neuts % (Manual) 81.0 H Band Neutrophils % 1.0 Lymphocytes % (Manual) 11.0 L Reactive Lymphs % (Man) 0 Monocytes % (Manual) 5.0 Eosinophils % (Manual) 2.0 Basophils % (Manual) 0 Metamyelocytes % 0 Myelocytes % 0 Promyelocytes % 0 Blast Cells % 0 Nucleated RBC % Not Reportable Seg Neutrophils # Man 1.8 Band Neutrophils # 0.0 Lymphocytes # (Manual) 0.2 L Abs React Lymphs (Man) 0.0 Monocytes # (Manual) 0.1 Eosinophils # (Manual) 0.0 Basophils # (Manual) 0.0 Metamyelocytes # 0.0 Myelocytes # 0.0 Promyelocytes # 0.0 Blast Cells # 0.0 WBC Morphology Not Reportable Hypersegmented Neuts Not Reportable Hyposegmented Neuts Not Reportable Hypogranular Neuts Not Reportable Smudge Cells Not Reportable Toxic Granulation Not Reportable Toxic Vacuolation Not Reportable Dohle Bodies Not Reportable Pelger-Huet Anomaly Not Reportable Derick Rods Not Reportable Platelet Estimate Consistent w auto Clumped Platelets Not Reportable Plt Clumps, EDTA Not Reportable Large Platelets Not Reportable Giant Platelets Not Reportable Platelet Satelliting Not Reportable Plt Morphology Comment Not Reportable RBC Morphology Not Reportable Dimorphic RBCs Not Reportable Polychromasia Not Reportable Hypochromasia Not Reportable Poikilocytosis Not Reportable Anisocytosis 1+ Microcytosis Not Reportable Macrocytosis Not Reportable Spherocytes Not Reportable Pappenheimer Bodies Not Reportable Sickle Cells Not Reportable Target Cells Not Reportable Tear Drop Cells Not Reportable Ovalocytes Not Reportable Helmet Cells Not Reportable Gilliam-Peralta Bodies Not Reportable [place] Rings Not Reportable Xavier Cells Not Reportable Bite Cells Not Reportable Crenated Cell Not Reportable Elliptocytes Not Reportable Acanthocytes (Spur) Not Reportable Rouleaux Not Reportable Hemoglobin C Crystals Not Reportable Schistocytes Not Reportable Malaria parasites Not Reportable Dennis Bodies Not Reportable Hem Pathologist Commnt No PT INR Sodium Potassium Chloride Carbon Dioxide Anion Gap BUN Creatinine Estimated GFR BUN/Creatinine Ratio Glucose Calcium Total Bilirubin AST ALT Alkaline Phosphatase Ammonia 64.0 H Total Protein Albumin Albumin/Globulin Ratio Hepatitis A IgM Ab Hep Bs Antigen Hep B Core IgM Ab Hepatitis C Antibody 04/10/19 04/10/19 04/10/19 05:21 05:21 05:21 WBC RBC Hgb Hct MCV MCH MCHC RDW Plt Count Add Manual Diff Total Counted Seg Neuts % (Manual) Band Neutrophils % Lymphocytes % (Manual) Reactive Lymphs % (Man) Monocytes % (Manual) Eosinophils % (Manual) Basophils % (Manual) Metamyelocytes % Myelocytes % Promyelocytes % Blast Cells % Nucleated RBC % Seg Neutrophils # Man Band Neutrophils # Lymphocytes # (Manual) Abs React Lymphs (Man) Monocytes # (Manual) Eosinophils # (Manual) Basophils # (Manual) Metamyelocytes # Myelocytes # Promyelocytes # Blast Cells # WBC Morphology Hypersegmented Neuts Hyposegmented Neuts Hypogranular Neuts Smudge Cells Toxic Granulation Toxic Vacuolation Dohle Bodies Pelger-Huet Anomaly Derick Rods Platelet Estimate Clumped Platelets Plt Clumps, EDTA Large Platelets Giant Platelets Platelet Satelliting Plt Morphology Comment RBC Morphology Dimorphic RBCs Polychromasia Hypochromasia Poikilocytosis Anisocytosis Microcytosis Macrocytosis Spherocytes Pappenheimer Bodies Sickle Cells Target Cells Tear Drop Cells Ovalocytes Helmet Cells Gilliam-Peralta Bodies [place] Rings Xavier Cells Bite Cells Crenated Cell Elliptocytes Acanthocytes (Spur) Rouleaux Hemoglobin C Crystals Schistocytes Malaria parasites Dennis Bodies Hem Pathologist Commnt PT 16.3 H INR 1.35 H Sodium 139 Potassium 3.8 Chloride 109.2 H Carbon Dioxide 23 Anion Gap 11 BUN 15 Creatinine 0.8 Estimated GFR > 60 BUN/Creatinine Ratio 19 Glucose 100 Calcium 7.7 L Total Bilirubin 5.10 H AST 119 H ALT 61 H Alkaline Phosphatase 550 H Ammonia Total Protein 6.6 Albumin 2.1 L Albumin/Globulin Ratio 0.5 Hepatitis A IgM Ab Non-reactive Hep Bs Antigen Non-reactive Hep B Core IgM Ab Non-reactive Hepatitis C Antibody Non-reactive
[2019-04-10] MEDS: ROCEPHIN/NS 1 GM/50 ML 1 GM/50 ML BAG IV SCH (10:56)
[2019-04-10] MEDS: SODIUM CHLORIDE FLUSH SYRINGE 10 ML IV SCH (10:59)
--- NOTE | 2019-04-10 11:43 | Discharge Summary ---
Providers - Providers Date of Admission: 04/08/19 22:37 Date of discharge: 04/10/19 Attending physician: VERENA CANCINO 04/08/19 20:22 Consult to Physician [CONS] Stat Comment: Dr. Castaneda spoke with Dr. Abel @ 2016 Consulting Provider: PEDRITO ABEL Physician Instructions: Reason For Exam: liver failure, hepatic encephalopathy 04/09/19 08:21 Consult to Dietitian/Nutrition [CONS] Routine Physician Instructions: Reason For Exam: Reason for Consult: Malnutrition Primary care physician: HARPREET KWOK Hospitalization Condition: Fair Hospital course: Patient is a 58 yo woman with a history of hypertension and possible remote history of alcoholic liver cirrhosis who presented to [facility] ED for AMS/confusion, dizziness, nausea. Ammonia level was 148 which was causing the symptoms. She was successfully treated with Lactulose. She has received optimal medical care from here and GI has signed off. The liver cirrhosis is main issue and she is end-stage. She does not want to consider Hospice at this time. She will need to follow up at a higher acuity hospital. 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 Gastric, esophageal varices Splenorenal shunt Disposition: NH-01 TO HOME OR SELFCARE Time spent for discharge: 35 minutes Core Measure Documentation - Palliative Care Palliative Care/ Comfort Measures: Not Applicable - Core Measures Any of the following diagnoses?: none - VTE Discharge Requirements Deep Vein Thrombosis/Pulmonary Embolism Present on Admission: No Has pt received <5 days of overlap therapy or INR<2.0: No Anticoagulant overlap therapy prescribed at discharge: No Contraindication No Overlap Therapy order at DC: Not Indicated Exam - Physical Exam Narrative exam: Gen: WDWN, NAD, Awake, Alert, Orientated HEENT: NCAT, EOMI, PERRL, OP Clear Neck: supple, no adenopathy, no thyromegaly, no JVD CVS/Heart: RRR, normal S1S2, pulses present bilaterally Chest/Lungs: CTA B, Symmetrical chest expansion, good air entry bilaterally GI/Abdomen: soft, NTND, good bowel sounds, no guarding or rebound /Bladder: no suprapubic tenderness, no CVA or paraspinal tenderness Extermity/Skin: no c/c/e, jaundice MSK: FROM x 4 Neuro: CN 2-12 grossly intact, no new focal deficits Psych: calm - Constitutional Vitals: Temp Pulse Resp BP Pulse Ox 98.3 F 79 18 121/62 100 04/10/19 06:04 04/10/19 06:04 04/10/19 06:04 04/10/19 06:03 04/10/19 06:04 Plan Activity: other (no strenous activity unless cleared by GI) Diet: regular Additional Instructions: 1) call [place] at any time, 15/04 to make an appointment with [facility] at , they have different locations. Follow up with: BRENNON CISNEROSROBINSON MD BENSON [Referring] - 3-5 Days MIN,PEDRITO VANG MD [Staff Physician] - 7 Days Prescriptions: Lactulose [Cephulac] 20 gm PO Q8H 30 Days #30 oral.liqd Rifaximin [Xifaxan] 550 mg PO BID #60 tablet
[2019-04-10 13:24] VITALS: BP 103/50
== END 2019-04-10 17:30 | disposition home or self-care (01) | DRG 441 ==
LOC: ED 11:25 → 3A 22:37
PROVIDERS: ADMIT Internal Medicine; ATTEND Internal Medicine
DX: K72.90 Hepatic failure, unspecified without coma (principal); E43 Unspecified severe protein-calorie malnutrition; I81 Portal vein thrombosis; N39.0 Urinary tract infection, site not specified; D61.818 Other pancytopenia; K74.60 Unspecified cirrhosis of liver; Z68.25 Body mass index [BMI] 25.0-25.9, adult; I10 Essential (primary) hypertension; F17.210 Nicotine dependence, cigarettes, uncomplicated; Z90.710 Acquired absence of both cervix and uterus; Z82.49 Family history of ischemic heart disease and other diseases of the circulatory system; D69.6 Thrombocytopenia, unspecified
CPT/HCPCS: 36415; 70450; 74177; 80053; 80074; 81001; 82140; 82150; 82248; 83690; 83880; 85007; 85025; 85027; 85610; 85730; 96374; 99285; 99406; G0378; J0696; J2405; Q9967

== ENCOUNTER 2021-07-24 09:09 | Outpatient (CLI) | payer OTHER ==
[2021-07-24 09:55] LABS: Alanine Aminotransferase 42 units/L (7-56); Albumin 2.2 g/dL (3.9-5); Blood Urea Nitrogen 15 mg/dL (7-17); Calcium 7.1 mg/dL (8.4-10.2); Hemolysis Index 3
[2021-07-24 09:58] LABS: Hematocrit 27.1 % (30.3-42.9); Hemoglobin 8.6 gm/dl (10.1-14.3); Mean Corpuscular HGB Conc 32 % (30-34); Mean Corpuscular Volume 79 fl (79-97); Red Blood Count 3.42 M/mm3 (3.65-5.03)
[2021-07-24 09:59] LABS: Red Cell Distribution Width 20.6 % (13.2-15.2)
[2021-07-24 10:07] LABS: BUN/Creatinine Ratio 21; INR 2.66 (0.87-1.13)
[2021-07-24 15:24] LABS: Anisocytosis 1+; Hypochromasia 1+; Ovalocytes Few; Platelet Estimate Consistent w Auto; Tear Drop Cells Rare; Total Cells Counted 100
[2021-07-24 15:25] LABS: Platelet Count 55 K/mm3 (140-440)
== END 2021-07-24 09:10 | disposition home or self-care (01) ==
LOC: LAB 09:09
PROVIDERS: ATTEND Internal Medicine
DX: Z02.71 Encounter for disability determination (principal); K76.89 Other specified diseases of liver
CPT/HCPCS: 36415; 80053; 85007; 85025; 85610